=== PATIENT | female | born 1950 | race Two or more races ===

== ENCOUNTER 2020-05-18 10:04 | Inpatient (IN) | payer OTHER ==
[2020-06-07] MEDS ORDERED: SYNTHROID75 MCG PO (15:38)
[2020-06-07] MEDS ORDERED: GABAPENTIN300 M2 PO (15:38)
[2020-06-07] MEDS ORDERED: DICLOFENAC SODI75 MG PO (15:39)
[2020-06-07] MEDS ORDERED: PREVACID30 MG PO (15:39)
[2020-06-07] MEDS ORDERED: CARAFATE1 GM PO (15:39)
[2020-06-07] MEDS ORDERED: ASPIR 8181 MG PO (15:40)
[2020-06-07] MEDS ORDERED: ZOCOR20 MG PO (15:40)
[2020-06-07] MEDS ORDERED: CLONAZEPAM1 M1 PO (15:40)
[2020-06-07] MEDS ORDERED: TENORMIN25 MG PO (15:40)
[2020-06-07] MEDS ORDERED: VITAMIN C500 M6 PO (15:41)
[2020-06-07] MEDS ORDERED: CALTRATE 600+D1 EAC1 PO (15:41)
== END 2020-06-16 18:55 | DRG 470 ==
LOC: O/R 06-14 07:00 → SURG 06-14 07:00 → EDBD 06-14 11:30 → SURH 06-14 11:30 → SURG 06-14 13:29
PROVIDERS: ADMIT Orthopaedic Surgery; ATTEND Orthopaedic Surgery
PROC: 0SRC0J9 Replacement of Right Knee Joint with Synthetic Substitute, Cemented, Open Approach (ICD-10-PCS; principal; 2020-06-14 12:30)
DX: M17.11 Unilateral primary osteoarthritis, right knee (principal); D62 Acute posthemorrhagic anemia; E03.9 Hypothyroidism, unspecified; J45.20 Mild intermittent asthma, uncomplicated; E78.00 Pure hypercholesterolemia, unspecified